=== PATIENT | female | born 1985 | race Caucasian/White ===

== ENCOUNTER 2019-05-18 11:17 | Emergency (ER) | payer OTHER ==
[2019-05-18 11:28] VITALS: BP 143/94
== END 2019-05-18 12:48 | disposition left against medical advice (07) ==
LOC: ED 11:17
DX: R69 Illness, unspecified (principal); Z53.21 Procedure and treatment not carried out due to patient leaving prior to being seen by health care provider
CPT/HCPCS: 99281

== ENCOUNTER 2021-02-19 16:25 | Inpatient (IN) ==
[2021-02-19] MEDS ORDERED: Buffered Lidocaine 1% SYRIN 1 ml INTRADERM ONE (17:54)
[2021-02-19] MEDS ORDERED: Lactated Ringers 1000 ml BAG 1,000 ML IV ONE ×2 (17:54→21:57)
[2021-02-19] MEDS ORDERED: Lactated Ringers 1000 ml BAG 1,000 ML IV SCH ×3 (18:00→23:45)
[2021-02-19 18:46] LABS: Rapid COVID-19 Molecular Undetected (Undetected)
[2021-02-19 19:04] LABS: Urine Benzodiazepine Screen None Detected (None Detect); Urine Cannabinoids Screen None Detected (None Detect); Urine Opiates Screen None Detected (None Detect)
[2021-02-19] MEDS ORDERED: OBEPIDURAL 250 ML EPIDURAL ONE (20:47)
[2021-02-19 20:52] LABS: ABS Eosinophils 0.1 10^3/ul (0-0.6); ABS Monocytes 0.7 10^3/ul (0-0.8); ABS Neutrophils 7.2 10^3/ul (1.5-7.7); Eosinophil % 0.5 %; Hematocrit 39 % (35-47); Hemoglobin 13.8 g/dL (12.0-16.0); Lymphocyte % 19.7 %; Mean Corpuscular HGB Conc 35 g/dL (31-36); Mean Corpuscular Hemoglobin 35 pg (27-31); Mean Corpuscular Volume 98 fL (80-97); Platelet Count 164 10^3/uL (150-450); Red Blood Count 4.01 10^6 /uL (3.70-4.87); Red Cell Distribution Width 13 % (10-15)
[2021-02-19] MEDS ORDERED: fentaNYL 100 mcg/2 ml 50 MCG/ML VIAL ONE (20:57)
[2021-02-19] MEDS ORDERED: Sodium Citrate/Citric Acid LIQ 15 ML UDC PO PRN (21:57)
[2021-02-19] MEDS ORDERED: Phenylephrine 40 mcg/mL 10mL (400mcg) SYRINGE IV PUSH PRN ×2 (21:57)
[2021-02-19] MEDS ORDERED: EPHEDrine (Pressors) 50 MG/ML VIAL IV PUSH PRN ×2 (21:57)
[2021-02-19] MEDS ORDERED: OBEPIDURAL 250 ML EPIDURAL SCH (22:00)
[2021-02-19 22:17] LABS: Urine Appearance Cloudy; Urine Bilirubin Negative (Negative); Urine Blood 1+ (Negative); Urine Color Yellow; Urine Glucose Negative (Negative); Urine Ketones 1+ (Negative); Urine Nitrite Negative (Negative); Urine Protein 2+(100 mg/dL) (Negative); Urine Specific Gravity 1.023 (1.002-1.030); Urine Urobilinogen Negative (Negative)
[2021-02-19 22:21] LABS: Urine Bacteria Absent (Absent); Urine Red Blood Cell Absent (Absent); Urine Squamous Epithelial Cell Present (Absent); Urine White Blood Cell Trace(0-5/hpf) (Absent)
[2021-02-19] MEDS ORDERED: Oxytocin in LR 20 UNITS/1,000 ML BAG IVPB ONE (23:22)
[2021-02-19] MEDS ORDERED: Oxytocin in LR 20 UNITS/1,000 ML BAG IVPB SCH (23:45)
[2021-02-19] MEDS ORDERED: Dibucaine 1% OINT 28.35 GM TUBE PR PRN (23:45)
[2021-02-19] MEDS ORDERED: witch hazeL 43% TOP.SOLN 200 ML PHA COMPOUND TOPICAL PRN (23:56)
[2021-02-20 06:58] LABS: ABS Basophils 0.1 10^3/ul (0-0.2); ABS Lymphocytes 1.5 10^3/ul (1.0-4.8); ABS Monocytes 0.8 10^3/ul (0-0.8); Eosinophil % 0.3 %; Hematocrit 33 % (35-47); Hemoglobin 11.8 g/dL (12.0-16.0); Lymphocyte % 10.7 %; Mean Corpuscular HGB Conc 36 g/dL (31-36); Mean Corpuscular Hemoglobin 35 pg (27-31); Mean Corpuscular Volume 98 fL (80-97); Mean Platelet Volume 8.7 fL (7.4-10.4); Platelet Count 113 10^3/uL (150-450); Red Blood Count 3.32 10^6 /uL (3.70-4.87); Red Cell Distribution Width 13 % (10-15); White Blood Count 14.4 10^3/uL (3.5-10.8)
[2021-02-21 08:03] VITALS: BP 113/69
[2021-02-21] MEDS ORDERED: Flu vaccine *QUAD* 2021-22* 0.5 ML SYRINGE IM ONE (09:00)
== END 2021-02-21 13:44 | disposition home or self-care (01) | DRG 560 ==
LOC: MCHOBOUT 16:25 → MCHOB 17:33
PROVIDERS: ADMIT Midwife; ATTEND Midwife

== ENCOUNTER 2023-10-31 03:36 | Inpatient (IN) ==
[2023-10-31] MEDS ORDERED: Lidocaine 1% VIAL 10 MG/ML 30 ML VIAL INJ PRN (04:23)
[2023-10-31] MEDS ORDERED: Ondansetron 4 mg VIAL 2 MG/ML 2 ml VIAL IV PRN (04:26)
[2023-10-31 04:57] LABS: ABS Eosinophils 0.1 10^3/uL (0.0-0.5); ABS Lymphocytes 1.8 10^3/uL (1.0-4.8); ABS Monocytes 0.7 10^3/uL (0.0-0.9); ABS Neutrophils 6.9 10^3/uL (1.5-7.6); ABS Nucleated RBC 0.01 10^3/ul; Eosinophil % 0.9 %; Hematocrit 39.1 % (35-45); Hemoglobin 13.4 g/dL (11.5-14.3); Lymphocyte % 19.2 %; Mean Corpuscular Hemoglobin 32.5 pg (27-33); Mean Corpuscular Hgb Conc 34.2 g/dL (31-36); Mean Corpuscular Volume 94.8 fL (80-97); Mean Platelet Volume 8.6 fL (7.5-11.2); Nucleated Red Blood Cells % 0.1 %/100WBC (0.0-0.8); Platelet Count 159 10^3/uL (150-450); Red Blood Count 4.12 10^6/uL (3.63-4.92); Red Cell Distribution Width 13.5 % (12-17); White Blood Count 9.6 10^3/uL (3.8-11.8)
[2023-10-31 05:07] LABS: Urine Benzodiazepine Screen None Detected (None Detect); Urine Cannabinoids Screen None Detected (None Detect); Urine Opiates Screen None Detected (None Detect)
[2023-10-31] MEDS ORDERED: Glycerin ADULT 2.4 gm SUPP PR PRN (06:20)
[2023-10-31] MEDS ORDERED: Lactated Ringers 1000 ml BAG 1,000 ML IV SCH (07:00)
[2023-10-31] MEDS: Dibucaine 1% OINT 28.35 GM TUBE PR PRN (07:30)
[2023-10-31] MEDS: Witch Hazel PAD JAR TOPICAL PRN (07:30)
[2023-10-31] MEDS: Lactated Ringers 1000 ml BAG 1,000 ML IV ONE (14:15)
[2023-10-31] MEDS: Buffered Lidocaine 1% SYRIN 1 ml INTRADERM ONE (14:15)
[2023-10-31] MEDS: Lidocaine 1.5% EPI 1:200,000 30 ML SDV ONE (14:16)
[2023-10-31] MEDS: Lidocaine 2% JELLY 6 ML Topical TOPICAL ONE (14:16)
[2023-10-31] MEDS: Famotidine IV 10 MG/ML 2 ml VIAL (20 mg) IV SLOW PU ONE (14:16)
[2023-10-31] MEDS: Lactated Ringers 1000 ml BAG 1,000 ML IV SCH (14:16)
[2023-10-31] MEDS: Oxytocin in LR 20,000 MILLI.UNIT/1,000 ML BAG IV SCH (14:16)
[2023-10-31] MEDS: Oxytocin 10 UNITS/ML 1 ML VIAL ONE (14:17)
[2023-10-31] MEDS: OBEPIDURAL (200 ML) 0 ML EPIDURAL ONE (14:17)
[2023-11-01 06:23] LABS: ABS Eosinophils 0.1 10^3/uL (0.0-0.5); ABS Lymphocytes 1.8 10^3/uL (1.0-4.8); ABS Monocytes 0.6 10^3/uL (0.0-0.9); ABS Nucleated RBC 0.01 10^3/ul; Eosinophil % 0.9 %; Hemoglobin 11.6 g/dL (11.5-14.3); Lymphocyte % 18.5 %; Mean Corpuscular Hemoglobin 32.6 pg (27-33); Mean Corpuscular Hgb Conc 34.1 g/dL (31-36); Mean Corpuscular Volume 95.6 fL (80-97); Mean Platelet Volume 8.3 fL (7.5-11.2); Nucleated Red Blood Cells % 0.1 %/100WBC (0.0-0.8); Platelet Count 137 10^3/uL (150-450); Red Blood Count 3.56 10^6/uL (3.63-4.92); Red Cell Distribution Width 13.7 % (12-17); White Blood Count 9.5 10^3/uL (3.8-11.8)
[2023-11-01 11:00] VITALS: BP 99/58
== END 2023-11-01 12:17 | disposition home or self-care (01) | DRG 560 ==
LOC: MCHOBOUT 03:36 → MCHOB 04:44
PROVIDERS: ADMIT Advanced Practice Midwife; ATTEND Advanced Practice Midwife